=== PATIENT | female | born 1975 | race Asian ===

== ENCOUNTER 2016-09-02 22:44 | Emergency (ER) | payer SELFPAY ==
[~2016-09-02] VITALS: Ht 160 cm; Wt 90.5 kg
[2016-09-02] MEDS ORDERED: KETOROLAC 30 MG/1 ML ONE (23:28)
[2016-09-02] MEDS ORDERED: ONDANSETRON 2MG/ML, 2ML ONE (23:28)
[2016-09-02] MEDS ORDERED: SODIUM CHLORIDE FLUSH 10ML SYR IVF ONE (23:30)
[2016-09-02] MEDS ORDERED: ONDANSETRON 2MG/ML, 2ML IVPush ONE (23:30)
[2016-09-02] MEDS ORDERED: SODIUM CHLORIDE 0.9% 1,000ML IVBOLUS ONE (23:30)
[2016-09-02] MEDS ORDERED: KETOROLAC 30 MG/1 ML IVPush ONE (23:30)
[2016-09-02 23:49] LABS: HEMOGLOBIN 12.6 g/dL (11.7-16.4)
[2016-09-03 00:02] LABS: BLOOD UREA NITROGEN 14 mg/dL (7-18)
[2016-09-03 00:03] LABS: ASPARTATE AMINO TRANSFERASE 22 U/L (15-37)
[2016-09-03] MEDS ORDERED: OMNIPAQUE 350 MG/ML, 100ML BOTTLE ONE (00:16)
[2016-09-03 00:28] VITALS: BP 126/82
== END 2016-09-03 01:16 | disposition home or self-care (01) ==
LOC: ED 23:59
DX: R10.32 Left lower quadrant pain (principal); K62.5 Hemorrhage of anus and rectum; R10.30 Lower abdominal pain, unspecified; R59.0 Localized enlarged lymph nodes; K76.9 Liver disease, unspecified; R19.7 Diarrhea, unspecified
CPT/HCPCS: 36415; 74177; 80053; 81003; 83690; 85025; 96361; 96374; 96375; 99285; J1885; J2405; J7030; Q9967

== ENCOUNTER 2017-09-11 08:58 | Emergency (ER) | payer BC, MEDICAID ==
[~2017-09-11] VITALS: Ht 160 cm; Wt 92.8 kg
[2017-09-11 08:59] VITALS: BP 138/90
[2017-09-11] MEDS ORDERED: KETOROLAC 30 MG/1 ML IM ONE (11:00)
[2017-09-11] MEDS ORDERED: KETOROLAC 30 MG/1 ML ONE (11:01)
[2017-09-11] MEDS ORDERED: OXYcodone/APAP 10/325MG TABLET ONE (11:49)
[2017-09-11] MEDS ORDERED: OXYcodone/APAP 10/325MG TABLET PO ONE (12:00)
[2017-09-11 12:01] LABS: CULTURE INDICATED? NO; MICROSCOPIC AUTO
[2017-09-11 12:02] LABS: HCG UR SG 1.015 (1.003-1.030)
== END 2017-09-11 13:51 | disposition home or self-care (01) ==
LOC: ED 13:40
DX: M54.16 Radiculopathy, lumbar region (principal); K62.5 Hemorrhage of anus and rectum
CPT/HCPCS: 72131; 74018; 81001; 81025; 96372; 99285; J1885